=== PATIENT | female | born 1975 | race Caucasian/White ===

== ENCOUNTER 2017-07-04 07:54 | Emergency (ER) | payer MEDICAID ==
[~2017-07-04] VITALS: Ht 162.6 cm; Wt 61.8 kg
[~2017-07-04 07:54] MED LIST: ACET1TAB40 PO; FAMO20TA18 PO; PANT40TA3 PO; PREN1TAB49; ZOF8 PO
[2017-07-04 07:58] VITALS: Ht 162.6 cm; Wt 61.8 kg
[2017-07-04 09:10] LABS: BASOPHIL # 0.1 10^3/ul (0.0-0.1); BASOPHILS % 0.5 % (0.0-2.0); EOSINOPHILS % 0.2 % (0.0-7.0); HEMATOCRIT 41.3 % (37.0-47.0); HEMOGLOBIN 13.2 g/dl (12.0-16.0); LYMPHOCYTES # 1.2 10^3/ul (0.8-2.9); LYMPHOCYTES % 11.9 % (15.0-51.0); MEAN CORPUSCULAR HEMOGLOBIN 28.4 pg (29.0-33.0); MEAN PLATELET VOLUME 9.4 fl (7.4-10.4); MONOCYTE # 0.5 10^3/ul (0.3-0.9); NEUTROPHIL # 8.2 10^3/ul (1.6-7.5); NEUTROPHILS % 82.1 % (39.0-77.0); PLATELET COUNT 461 10^3/UL (140-415); RED BLOOD COUNT 4.64 10^6/ul (4.20-5.40); RED CELL DISTRIBUTION WIDTH 12.1 % (11.5-14.5)
[2017-07-04 09:32] LABS: ALBUMIN 4.1 g/dl (3.3-4.9); BILIRUBIN,INDIRECT 0.3 mg/dl (0-1.1); BILIRUBIN,TOTAL 0.3 mg/dl (0.2-1.3); CALCIUM 9.9 mg/dl (8.4-10.2); CREATININE 0.65 mg/dl (0.44-1.00); POTASSIUM 3.9 mmol/L (3.5-5.1); TOTAL PROTEIN 8.2 g/dl (6.1-8.1)
[2017-07-04 09:48] LABS: T3 UPTAKE 19.4 % (23.5-40.5)
--- NOTE | 2017-07-04 10:00 | RADRPT ---
PROCEDURE: US Thyroid. CLINICAL INDICATION: Neck pain and lump TECHNIQUE: Multiple sonographic images of the thyroid were obtained. Transverse and sagittal imagi ng of the gland and lee ann-thyroidal tissues was performed with a high frequency linear array transduc er. Color interrogation was performed as well. The images were reviewed on a PACS workstation. COMPARISON: No prior studies are available for comparison. FINDINGS: Thyroid Size: Right lobe: 5.2 x 2.2 x 1.7 cm Left lobe: 4.3 x 1.8 x 1.3 cm Appearance: Echogenicity: Heterogeneous multinodular Vascularity: normal Right thyroid nodules: 2.0 x 1.1 x 0.9 cm hypoechoic ill-defined solid mass at the upper pole of the right lobe of the thyr oid. 1.4 cm hypoechoic circumscribed solid mass at the lower pole of the right thyroid lobe. Left thyroid nodules: 1.0 cm hypoechoic round circumscribed mass at the left lobe of the thyroid. Additional: Adenopathy: None Soft tissues: Normal IMPRESSION: 2 cm hypoechoic ill-defined solid mass at the upper pole of the right thyroid lobe. Fine-needle aspi ration of this mass is advised. Other smaller round circumscribed hypoechoic solid masses in the bilateral thyroid lobes measuring u p to 1.4 cm. TI-RADS 4 TI-RADS 1: Benign, <2% malignancy risk: No FNA TI-RADS 2: Not suspicious, <2% malignancy risk: No FNA TI-RADS 3: Mildly suspicious, 5% malignancy risk: FNA if ? 2.5 cm TI-RADS 4: Moderately suspicious, 5-20% malignancy risk: FNA if ? 1.5 cm TI-RADS 5: Highly suspicious, >20% malignancy risk: FNA if ? 1.0 cm RPTAT: QQ .Sampson Wade MD, Date Time Electronically viewed and signed by .Sampson Wade MD, on 07/04/2017 10:00 .Octavia/
[2017-07-04 10:01] LABS: THYROID STIMULATING HORMONE 0.104 MIU/L (0.465-4.680)
[2017-07-04] MEDS ORDERED: ACET500C5 PO (10:23)
--- NOTE | 2017-07-04 18:00 | ERD ---
ER Documentation Chief Complaint Chief Complaint neck pain x 2 weeks, no injury HPI 42-year-old female complaining of neck pain 2 weeks. Patient stated the pain started on the right side of her neck and now progressed to the right anterior neck. She has pain with swallowing. She took ibuprofen at home for pain, which helps for short period time. Patient reports feeling hot at times. Denies fever or chills. Denies neck injury. Denies recent weight changes. Denies palpitations. Denies cold intolerance. Denies history of thyroid disease. ROS All systems reviewed and are negative except as per history of present illness. Medications Home Meds Active Scripts Acetaminophen* (Tylophen*) 500 Mg Capsule, 1 CAP PO Q6H Y for PAIN AND OR ELEVATED TEMP, #20 CAP Prov:TONNY COFFEY GYMNASTICS COACH OR INSTRUCTOR 07/04/17 Ondansetron Hcl* (Zofran* ODT) 8 mg -ODT Tab.disper, 8 MG PO Q6H Y for NAUSEA AND OR VOMITING, #10 TAB Prov:JAYNAT PÉREZ MD 09/14/15 Acetaminophen-Codeine* (Acetaminophen-Cod #3*) 300-30 Mg Tab, 1 TAB PO Q4H Y for PAIN, #14 TAB Prov:JAYANT PÉREZ MD 09/14/15 Pantoprazole* (Protonix*) 40 Mg Tablet.dr, 40 MG PO DAILY, #20 TAB Prov:JAYANT PÉREZ MD 09/14/15 Reported Medications Famotidine* (Famotidine*) 20 Mg Tablet, PO BID 01/24/12 Vits W-Ca,Fe,Fa(<1MG) () 1 Tab Tablet 12/17/10 Allergies Allergies: Coded Allergies: No Known Allergy (Unverified , 09/14/15) PMhx/Soc History of Surgery: No Anesthesia Reaction: No Hx Neurological Disorder: No Hx Respiratory Disorders: No Hx Cardiac Disorders: No Hx Psychiatric Problems: No Hx Miscellaneous Medical Probl: No Hx Alcohol Use: No Hx Substance Use: No Hx Tobacco Use: No Smoking Status: Never smoker Physical Exam Vitals Vital Signs Date Time Temp Pulse Resp B/P Pulse Ox O2 Delivery O2 Flow Rate FiO2 07/04/17 07:58 98.2 90 18 130/63 99 Physical Exam General: Well-developed, well-nourished, conscious and coherent, in no distress Skin: Warm and dry without rash, good texture and turgor Head: Normocephalic without evidence of trauma Eyes: Sclera and conjunctivae normal; pupils equal, round, and reactive to light; extraocular movements are intact Neck: Supple without meningismus or adenopathy. Carotids are equal. Trachea midline. No bruits or JVD. Thyroid gland palpable bilaterally, no nodules palpated. Chest: Normal AP diameter. Good expansion without retractions. Nontender. Lungs are clear to auscultate bilaterally with good tidal volume Heart: Regular rate and rhythm. No murmur, rub, or gallops heard Extremities: Full range of motion. Good strength bilaterally. No clubbing, cyanosis, or edema. Peripheral pulses are intact. Sensation intact Neuro: Alert and oriented 4, GCS 15. Cranial nerves grossly intact. Motor and sensory exams nonfocal. Moves all extremities. Speech clear. Gait normal Result Diagram: 07/04/17 0900 07/04/17 0900 Results 24 hrs Laboratory Tests Test 07/04/17 09:00 White Blood Count 10.010^3/ul Red Blood Count 4.6410^6/ul Hemoglobin 13.2g/dl Hematocrit 41.3% Mean Corpuscular Volume 89.0fl Mean Corpuscular Hemoglobin 28.4pg Mean Corpuscular Hemoglobin Concent 32.0g/dl Red Cell Distribution Width 12.1% Platelet Count 65430^3/UL Mean Platelet Volume 9.4fl Neutrophils % 82.1% Lymphocytes % 11.9% Monocytes % 5.0% Eosinophils % 0.2% Basophils % 0.5% Nucleated Red Blood Cells % 0.0/100WBC Neutrophils # 8.210^3/ul Lymphocytes # 1.210^3/ul Monocytes # 0.510^3/ul Eosinophils # 0.010^3/ul Basophils # 0.110^3/ul Nucleated Red Blood Cells # 0.010^3/ul Sodium Level 143mmol/L Potassium Level 3.9mmol/L Chloride Level 104mmol/L Carbon Dioxide Level 27mmol/L Anion Gap 16 Blood Urea Nitrogen 10mg/dl Creatinine 0.65mg/dl Glucose Level 110mg/dl Calcium Level 9.9mg/dl Total Bilirubin 0.3mg/dl Direct Bilirubin 0.00mg/dl Indirect Bilirubin 0.3mg/dl Aspartate Amino Transf (AST/SGOT) 24IU/L Alanine Aminotransferase (ALT/SGPT) 42IU/L Alkaline Phosphatase 128IU/L Total Protein 8.2g/dl Albumin 4.1g/dl Globulin 4.10g/dl Albumin/Globulin Ratio 1.00 Thyroid Stimulating Hormone (TSH) 0.104MIU/L Free Thyroxine Index 3.96ug/ml Thyroxine (T4) 20.4ug/dl Triiodothyronine (T3) Uptake 19.4% PROCEDURE: US Thyroid. CLINICAL INDICATION: Neck pain and lump TECHNIQUE: Multiple sonographic images of the thyroid were obtained. Transverse and sagittal imaging of the gland and lee ann-thyroidal tissues was performed with a high frequency linear array transducer. Color interrogation was performed as well. The images were reviewed on a PACS workstation. COMPARISON: No prior studies are available for comparison. FINDINGS: Thyroid Size: Right lobe: 5.2 x 2.2 x 1.7 cm Left lobe: 4.3 x 1.8 x 1.3 cm Appearance: Echogenicity: Heterogeneous multinodular Vascularity: normal Right thyroid nodules: 2.0 x 1.1 x 0.9 cm hypoechoic ill-defined solid mass at the upper pole of the right lobe of the thyroid. 1.4 cm hypoechoic circumscribed solid mass at the lower pole of the right thyroid lobe. Left thyroid nodules: 1.0 cm hypoechoic round circumscribed mass at the left lobe of the thyroid. Additional: Adenopathy: None Soft tissues: Normal IMPRESSION: 2 cm hypoechoic ill-defined solid mass at the upper pole of the right thyroid lobe. Fine-needle aspiration of this mass is advised. Other smaller round circumscribed hypoechoic solid masses in the bilateral thyroid lobes measuring up to 1.4 cm. TI-RADS 4 TI-RADS 1: Benign, <2% malignancy risk: No FNA TI-RADS 2: Not suspicious, <2% malignancy risk: No FNA TI-RADS 3: Mildly suspicious, 5% malignancy risk: FNA if ? 2.5 cm TI-RADS 4: Moderately suspicious, 5-20% malignancy risk: FNA if ? 1.5 cm TI-RADS 5: Highly suspicious, >20% malignancy risk: FNA if ? 1.0 cm RPTAT: QQ .Sampson Wade MD, Date Time Electronically viewed and signed by .Sampson Wade MD, on 07/04/2017 10:00 .L/ CC: TONNY COFFEY GYMNAST[employer] COACH OR INSTRUCTOR Procedures/MDM 42-year-old female presented ED was right anterior neck pain 2 weeks. Thyroid ultrasound showed 2 cm hypoechoic ill-defined solid mass at the upper pole of the right thyroid lobe. Other smaller round circumscribed hypoechoic solid masses in the bilateral thyroid lobes also seen. CBC and CMP are unremarkable. TSH is low at 0.104, free T4 and T4 and free T4 index are both high. T3 uptake is low. Differentials include thyroid tumor/cancer, medullary thyroid cancer, Graves' disease, toxic adenoma, toxic goiter, Roque thyroiditis. Patient does not have any sign of airway obstruction, nor have any sign of thyroid storm. Patient is informed of the testing results, and advised to follow-up with PCP for fine-needle aspiration of her thyroid mass. Patient appears well, stable for discharge and outpatient management. Medical decision making shared with patient and family. Education provided to patient and family. Patient and family expressed understanding of the plan. Medications on discharge: Tylenol Follow-up: Primary care provider in 2-3 days or return to ED if worse. The case was reviewed and discussed with Dr. Pérez, who agrees with the plan of care. Disclaimer: Inadvertent spelling and grammatical errors are likely due to EHR/ dictation software use and do not reflect on the overall quality of patient care. Also, please note that the electronic time recorded on this note does not necessarily reflect the actual time of the patient encounter. Departure Diagnosis: Primary Impression: Hyperthyroidism Additional Impression: Thyroid nodule Condition: Stable Patient Instructions: Hyperthyroidism [facility] Usted se simmons hecho un examen mdico de control que le indica que no est en tamera condicin que requiera tratamiento urgente en el Departamento de Emergencia. Un estudio ms profundo y el tratamiento de benítez condicin pueden esperar sin ningn riesgo hasta que usted sea atendida/o en el consultorio de benítez mdico o tamera cl lane. Es responsabilidad suya arreglar tamera noah para el seguimiento del alverto. MANEJO DE CONDICIONES NO URGENTES EN EL FUTURO 1) Si usted tiene un mdico de atencin primaria: Usted debera llamar a benítez mdico de atencin primaria antes de venir al departamento de emergencia. Despus de las horas de consultorio, benítez doctor o benítez asociado/a est disponible por telfono. El mdico o enfermero de anitha en el servicio telefnico puede asesorarle por dannie medio para atender el problema, o alverto contrario se puede programar tamera noah. 2) Si usted no tiene un mdico de atencin primaria: Llame al mdico o clnica de referencia que aparece abajo arina las horas de consultorio para hacer tamrea noah para que le vean. CLINICAS: [facility] [phone] [address] [facility] [phone] [address] [facility]. [facility] [phone] [address] [facility]. [place] [id number] [phone] [facility] [place] [address] [phone] [facility]. [phone] [facility]. [facility] () Usted se simmons hecho un examen mdico de control que le indica que no est en tamera condicin que requiera tratamiento urgente en el Departamento de Emergencia. Un estudio ms profundo y el tratamiento de benítez condicin pueden esperar sin ningn riesgo hasta que usted sea atendida/o en el consultorio de benítez mdico o tamera cl lane. Es responsabilidad suya arreglar tamera noah para el seguimiento del alverto. MANEJO DE CONDICIONES NO URGENTES EN EL FUTURO 1) Si usted tiene un mdico de atencin primaria: Usted debera llamar a benítez mdico de atencin primaria antes de venir al departamento de emergencia. Despus de las horas de consultorio, benítez doctor o benítez asociado/a est disponible por telfono. El mdico o enfermero de anitha en el servicio telefnico puede asesorarle por dannie medio para atender el problema, o alverto contrario se puede programar tamera noah. 2) Si usted no tiene un mdico de atencin primaria: Llame al mdico o condado institucions de referencia que aparece abajo arina las horas de consultorio para hacer tamera noah para que le vean. SI USTED NO PUEDE PAGAR PARA ALYSA UN MEDICO puede ir a: [facility] [address] [place], [place] [id number] [place] [address] [address] [place] [address] [facility] [address] [place] [address] PARA [facility] [address] [place], [place] [id number] Additional Instructions: Llame al doctor MAANA y bhupendra tamera NOAH PARA DENTRO DE 2-3 GATES.Dgale a la secretaria que nosotros le instruimos hacer esta noah.Avise o llame si benítez condicin se empeora antes de la noah. Regresa aqui si peor o no mejor. TONNY COFFEY NP Jul 04, 2017 17:59
== END 2017-07-04 10:34 | disposition home or self-care (01) ==
LOC: FTE 07:54
DX: E05.90 Thyrotoxicosis, unspecified without thyrotoxic crisis or storm (principal); E04.1 Nontoxic single thyroid nodule
CPT/HCPCS: 36415; 76536; 80053; 84436; 84443; 84479; 85025; Z7502